=== PATIENT | female | born 1985 | race Caucasian/White ===

== ENCOUNTER 2024-09-13 14:06 | Emergency (ER) | payer BC ==
[~2024-09-13] VITALS: Ht 157.5 cm; Wt 49.9 kg
[2024-09-13 14:54] VITALS: BP 95/46; PULSE 74; RESP 20; TEMP 97.3; O2SAT 97
[2024-09-13 14:57] VITALS: BP 103/54; PULSE 74; RESP 18; TEMP 98.3; O2SAT 98
[2024-09-13] MEDS: PROCHLORPERAZINE 10 MG/2 ML VIAL IM ONE (15:14)
[2024-09-13] MEDS: KETOROLAC 30 MG/ML VIAL IM ONE (15:20)
[2024-09-13] MEDS ORDERED: PROC-87 PO (16:19)
[2024-09-13] MEDS ORDERED: NAPR-1704 PO (16:19)
== END 2024-09-13 16:28 | disposition home or self-care (01) ==
LOC: MED 14:06
DX: G43.909 Migraine, unspecified, not intractable, without status migrainosus (principal); R11.0 Nausea; I95.9 Hypotension, unspecified; Z79.899 Other long term (current) drug therapy
CPT/HCPCS: 81025; 96372; 99284; J0780; J1885